=== PATIENT | female | born 1935 | race Hispanic/Latino ===

== ENCOUNTER 2017-04-30 16:47 | Emergency (ER) | payer MEDICARE, MEDICAID ==
[2017-04-30 17:11] VITALS: BP 125/70; PULSE 88; RESP 18; TEMP 97.5; O2SAT 96
[2017-04-30] MEDS ORDERED: Lidocaine 5% Patch TD ONE (18:04)
[2017-04-30] MEDS ORDERED: Lidocaine 5% Patch TD STA (18:11)
--- NOTE | 2017-04-30 18:14 | C.PDOC ---
History Of Present Illness 81 yr old female with PMHx of arthritis, presents to the ER with complaints of left shoulder pain for the past 4 days. Patient states she woke up with the pain , has been taking Aleve with minimal relief. States the pain is made worse with movement, states the pain is 7/10. Denies trauma, injury, neck pain, weakness or numbness. Time Seen by Provider: 04/30/17 17:15 Chief Complaint (Nursing): Upper Extremity Problem/Injury History Per: Patient History/Exam Limitations: no limitations Onset/Duration Of Symptoms: Days (4) Current Symptoms Are (Timing): Still Present Past Medical History Reviewed: Historical Data, Nursing Documentation, Vital Signs Vital Signs: Last Vital Signs Temp 97.5 F L 04/30/17 17:07 Pulse 88 04/30/17 17:07 Resp 18 04/30/17 17:07 BP 125/70 04/30/17 17:07 Pulse Ox 96 04/30/17 18:15 - Medical History PMH: Arthritis, Back Problems, HTN Surgical History: Appendectomy, Cholecystectomy Family History: States: No Known Family Hx - Social History Hx Alcohol Use: No Hx Substance Use: No - Immunization History Hx Tetanus Toxoid Vaccination: No Hx Influenza Vaccination: Yes Hx Pneumococcal Vaccination: No Review Of Systems Except As Marked, All Systems Reviewed And Found Negative. Musculoskeletal: Positive for: Shoulder Pain (lefts houlder). Negative for: Neck Pain Neurological: Negative for: Weakness, Numbness Physical Exam - Physical Exam Appears: Non-toxic, No Acute Distress Skin: Warm, Dry Oral Mucosa: Moist Neck: No Step Off Deformity, Supple, Other (+ muscle spasms to the left SCM, no brusing, no crepitus) Respiratory: Normal Breath Sounds, No Rales, No Rhonchi, No Stridor, No Wheezing Extremity: Normal ROM, Capillary Refill (<2 secs) Pulses: Left Radial: Normal, Right Radial: Normal Neurological/Psych: Oriented x3, Normal Speech, Normal Motor, Normal Sensation ED Course And Treatment O2 Sat by Pulse Oximetry: 96 (RA) Pulse Ox Interpretation: Normal Progress Note: Lidoderm patch is applied and patient is given Tylenol & Motrin for pain relief. Upon reevaluation, patient reports improvment of symptoms. Patient is being dischagred with Rx for Lidoderm TD, Motrin PO & Tylenol PO. Medical Decision Making Medical Decision Making: PLAN: * Lidoderm TD * Motrin PO * Tylenol PO Disposition Counseled Patient/Family Regarding: Diagnosis, Need For Followup, Rx Given - Disposition Disposition: HOME/ ROUTINE Disposition Time: 18:11 Condition: STABLE Additional Instructions: [place] el medicament vanessa es indicado. Siga con weldon doctor. Prescriptions: Acetaminophen [Tylenol Extra Strength] 1,000 mg PO BID #12 tablet Ibuprofen [Motrin] 400 mg PO TID #12 tab Lidocaine 5% [Lidoderm] 1 ea TD DAILY #1 patch Instructions: Osteoarthritis (DC), Muscle Spasms (DC) Forms: [employer] (Bolivian), Gen Discharge Inst [place]ian - POA Present On Arrival: None - Clinical Impression Clinical Impression: Muscle spasm, Arthritis - Scribe Statement The provider has reviewed the documentation as recorded by the Camron Mccain Provider Attestation: All medical record entries made by the Kimberlyibkirstin were at my direction and personally dictated by me. I have reviewed the chart and agree that the record accurately reflects my personal performance of the history, physical exam, medical decision making, and the department course for this patient. I have also personally directed, reviewed, and agree with the discharge instructions and disposition.
[2017-05-01] MEDS ORDERED: Lidocaine 5% Patch TD SCH (10:00)
== END 2017-04-30 18:22 | disposition home or self-care (01) ==
LOC: C.ER 16:47
DX: M62.838 Other muscle spasm (principal); M19.012 Primary osteoarthritis, left shoulder; I10 Essential (primary) hypertension

== ENCOUNTER 2017-05-05 15:27 | Emergency (ER) | payer MEDICARE, MEDICAID ==
[2017-05-05] MEDS ORDERED: Lidocaine 5% Patch TD STA (16:15)
[2017-05-05] MEDS ORDERED: Lidocaine 5% Patch TD ONE (16:30)
--- NOTE | 2017-05-05 16:36 | C.PDOC ---
History Of Present Illness 81 year old female with a past medical history of arthritis, presents complaining of upper back pain for 5 days. Pain was mostly left-sided last week and now is on the right side, radiating into the bilateral shoulders. Patient reports the pain worsens with movement. States she was seen here last week and given a prescription but it upset her stomach so she stopped taking the medication. Patient was unable to fill the prescription for Lidoderm patch as it was too expensive, so she is requesting another Lidoderm patch. Additionally , patient is now complaining of left-sided lower back pain, radiating down the left leg. Has history of sciatica and states her current pain is consistent with previous episodes of sciatica. Also states she was seen by senior financial reporting analyst Dr. Hercules 2 weeks ago and told she needs an echocardiogram. States she wants her heart checked today. Denies any chest pain or shortness of breath. Time Seen by Provider: 05/05/17 15:53 Chief Complaint (Nursing): Back Pain History Per: Patient History/Exam Limitations: no limitations Onset/Duration Of Symptoms: Days (x5) Current Symptoms Are (Timing): Still Present Previous Symptoms: Back Pain (sciatica) Past Medical History Reviewed: Historical Data, Nursing Documentation, Vital Signs Vital Signs: Last Vital Signs Temp 97.6 F 05/05/17 15:41 Pulse 93 H 05/05/17 15:41 Resp 20 05/05/17 15:41 BP 123/72 05/05/17 15:41 Pulse Ox 96 05/05/17 17:06 - Medical History PMH: Arthritis, Back Problems, HTN Surgical History: Appendectomy, Cholecystectomy Family History: States: No Known Family Hx - Social History Hx Alcohol Use: No Hx Substance Use: No - Immunization History Hx Tetanus Toxoid Vaccination: No Hx Influenza Vaccination: Yes Hx Pneumococcal Vaccination: No Review Of Systems Cardiovascular: Negative for: Chest Pain Respiratory: Negative for: Shortness of Breath Genitourinary: Negative for: Incontinence Musculoskeletal: Positive for: Shoulder Pain (bilateral), Back Pain (upper and lower) Neurological: Negative for: Weakness, Numbness Physical Exam - Physical Exam Appears: Well, Non-toxic, No Acute Distress Skin: Warm, Dry, No Rash Head: Atraumatic, Normacephalic Eye(s): bilateral: Normal Inspection Nose: Normal Oral Mucosa: Moist Neck: Normal ROM Chest: Symmetrical Cardiovascular: Rhythm Regular, No Murmur Respiratory: Normal Breath Sounds, No Accessory Muscle Use, No Rales, No Rhonchi , No Wheezing Gastrointestinal/Abdominal: Bowel Sounds (active), Soft, No Tenderness, No Guarding Back: No Vertebral Tenderness, No Paraspinal Tenderness (to lumbar spine), Other (mild kyphosis noted, diffuse trapezius tenderness bilaterally) Extremity: Normal ROM (with full ROM of shoulders), No Tenderness, No Swelling Neurological/Psych: Oriented x3, Normal Speech, No Other (focal deficits) ED Course And Treatment ECG: Interpreted By Me, Viewed By Me ECG Rhythm: Sinus Rhythm (with 1st degree AV block with premature atrial complexes) ECG Interpretation: No Changes From Prior (no changes from EKG on 03/17/15) Rate From EC O2 Sat by Pulse Oximetry: 96 (RA) Pulse Ox Interpretation: Normal - Other Rad x-ray thoracic spine X-Ray: Viewed By Me, Read By Radiologist Interpretation: FINDINGS: BONES: The thoracic vertebral bodies are maintained in height. Normal alignment is maintained. There is mild thoracic kyphosis and levoscoliosis. There is no lytic or blastic osseous lesion. DISC SPACES: Normal. SOFT TISSUES: Normal. OTHER FINDINGS: None. IMPRESSION: Mild kyphosis and levoscoliosis. No evidence of fracture. Medical Decision Making Medical Decision Making: Impression: 81 year old with back pain Plan: * EKG * Lidoderm patch applied * Tylenol 650 mg PO * X-ray of thoracic spine EKG shows no changes from prior. X-Ray shows no acute findings. Results discussed with patient in detail, all questions answered. Disposition Counseled Patient/Family Regarding: Studies Performed, Diagnosis, Need For Followup - Disposition Referrals: Chalino Abrams Jr., MD [Medical Doctor] - Frieda Hercules MD [Staff Provider] - Disposition: HOME/ ROUTINE Disposition Time: 17:05 Condition: STABLE Additional Instructions: You can apply heat to area Take Tylenol 500mg for any pain Take Ibuprofen as needed for pain every 6-8 hours, with food to not upset stomach Puedes aplicar calor al kim [place] Tylenol 500 mg para cualquier dolor [place] ibuprofeno segn sea necesario para el dolor cada 6-8 horas, con alimentos para no disgustar el estmago Instructions: Arthritis and Exercise Forms: [employer] (Wolof) Print Language: HUNGARIAN - POA Present On Arrival: None - Clinical Impression Clinical Impression: Thoracic back pain, Sciatica - PA / VP DESIGN / Resident Statement MD/DO has reviewed & agrees with the documentation as recorded. - Scribe Statement The provider has reviewed the documentation as recorded by the Scribe (Evy Rand) All medical record entries made by the Scribe were at my direction and personally dictated by me. I have reviewed the chart and agree that the record accurately reflects my personal performance of the history, physical exam, medical decision making, and the department course for this patient. I have also personally directed, reviewed, and agree with the discharge instructions and disposition.
--- NOTE | 2017-05-05 16:50 | RAD ---
HISTORY: upper back pain COMPARISON: No prior. FINDINGS: BONES: The thoracic vertebral bodies are maintained in height. Normal alignment is maintained. There is mild thoracic kyphosis and levoscoliosis. There is no lytic or blastic osseous lesion. DISC SPACES: Normal. SOFT TISSUES: Normal. OTHER FINDINGS: None. IMPRESSION: Mild kyphosis and levoscoliosis. No evidence of fracture.
[2017-05-05 17:50] VITALS: BP 126/86; PULSE 78; RESP 16; TEMP 98
[2017-05-05 18:19] VITALS: O2SAT 96
--- NOTE | 2017-05-06 12:17 | CARD ---
APPROVED REPORT EKG Measurement Heart [id number] <Conclusion> Sinus rhythm with 1st degree AV block with premature atrial complexes Minimal voltage criteria for LVH, may be normal variant Borderline ECG
== END 2017-05-05 17:50 | disposition home or self-care (01) ==
LOC: C.ER 15:27
DX: M54.6 Pain in thoracic spine (principal); M54.30 Sciatica, unspecified side; I10 Essential (primary) hypertension; M19.90 Unspecified osteoarthritis, unspecified site